=== PATIENT | male | born 1965 | race Caucasian/White ===

== ENCOUNTER → 2021-03-31 14:26 | Outpatient (CLI) | payer OTHER, SELFPAY ==
[2021-03-31 17:47] LABS: Absolute Neutrophil Count 3.5 X10^3/uL (2.0-7.7); Basophil# 0.02 X10^3/uL; Basophil% 0.4 % (0-1); Eosinophil# 0.09 X10^3/uL; Eosinophils% 1.7 % (0-5); Hematocrit 45.8 % (40-54); Hemoglobin 15.5 g/dL (13.0-16.5); Lymphocyte % 26.2 % (19-41); Mean Corp Hgb Conc 33.8 g/dL (32-36); Mean Corpuscular Volume 88.6 fL (80-94); Mean Platelet Vol. 10.9 fl (6.2-12.0); Monocyte# 0.37 X10^3/uL; Monocyte% 6.9 % (0-10); NRBC Flagged by Analyzer 0 % (0-5); Neutrophil # 3.46 X10^3/uL (2.7-7.7); Neutrophil % 64.6 % (47-70); Platelet Count 248 K/mm3 (150-450); RBC Distribution Width CV 12.6 % (11.6-14.6); RBC Distribution Width SD 41.1 fl (35.1-43.9); Red Blood Count 5.17 M/mm3 (4.6-6.2); White Blood Count 5.4 K/mm3 (4.4-11.0)
[2021-03-31 17:58] LABS: ALB/GLOB Ratio 1.1 RATIO (0.9-2.4); AST(SGOT) 25 U/L (15-37); Alanine Aminotransfer ALT/SGPT 45 U/L (16-61); Albumin, Serum 4.1 g/dL (3.2-5.0); Alkaline Phosphatase 67 U/L (45-117); Anion Gap 7 (5-15); BUN 15 mg/dL (7-18); BUN/Creat Ratio 15.3 RATIO (10-20); Calcium,Total 9.2 mg/dL (8.5-10.1); Chloride 101 mmol/L (98-107); Cholesterol 175 mg/dL (200); Creatinine, Serum 0.98 mg/dL (0.70-1.30); EST Glomerular Filtration Rate 84 mL/min (>60); Est Glom Filt Rate - Afr Amer 102 mL/min (>60); Globulin 3.6 g/dL (2.2-4.2); Glucose 88 mg/dL (74-106); High Density Lipoprotein 41 mg/dL; Potassium 3.5 mmol/L (3.5-5.1); Protein, Total 7.7 g/dL (6.4-8.2); Sodium Level 137 mmol/L (136-145); Triglycerides 195 mg/dL; Very Low Density Lipoprotein 39 mg/dL (5-40)
[2021-04-03 09:20] LABS: Testosterone Free 18.9 pg/mL (7.2-24.0)
== END ==
PROVIDERS: PCP Registered Nurse; Referring Provider Registered Nurse; Visit Provider Registered Nurse
DX: I10 Essential (primary) hypertension (principal); R53.83 Other fatigue
CPT/HCPCS: 36415; 80053; 80061; 84402; 85025

== ENCOUNTER → 2022-01-05 | Outpatient (CLI) | payer OTHER, SELFPAY ==
[2022-01-05 18:16] LABS: Hematocrit 41.7 % (40-54); Hemoglobin 14.1 g/dL (13.0-16.5); Mean Corp Hgb Conc 33.8 g/dL (32-36); Mean Corpuscular Hgb 29.8 pg (27.0-32.0); Mean Corpuscular Volume 88.2 fL (80-94); Mean Platelet Vol. 11.3 fl (6.2-12.0); Platelet Count 202 K/mm3 (150-450); RBC Distribution Width CV 13.4 % (11.6-14.6); RBC Distribution Width SD 43.8 fl (35.1-43.9); Red Blood Count 4.73 M/mm3 (4.6-6.2); White Blood Count 4.7 K/mm3 (4.4-11.0)
[2022-01-05 18:31] LABS: Anion Gap 6 (5-15); BUN 16 mg/dL (7-18); BUN/Creat Ratio 17.1 RATIO (10-20); Calcium,Total 9.3 mg/dL (8.5-10.1); Chloride 105 mmol/L (98-107); Creatinine, Serum 0.93 mg/dL (0.70-1.30); EST Glomerular Filtration Rate 89 mL/min (>60); Est Glom Filt Rate - Afr Amer 108 mL/min (>60); Glucose 90 mg/dL (74-106); Sodium Level 137 mmol/L (136-145)
== END | disposition home or self-care (01) ==
LOC: MFPLAB 14:40
PROVIDERS: PCP Registered Nurse; Visit Provider Nurse Practitioner Family
DX: I10 Essential (primary) hypertension (principal)
CPT/HCPCS: 36415; 80048; 85027

== ENCOUNTER → 2022-08-04 | Outpatient (CLI) | payer OTHER, SELFPAY ==
[2022-08-04 17:43] LABS: Absolute Lymphocyte Count 1.38 X10^3/uL (0.83-4.51); Absolute Neutrophil Count 4.2 X10^3/uL (2.0-7.7); Basophil# 0.02 X10^3/uL; Basophil% 0.3 % (0-1); Eosinophil# 0.06 X10^3/uL; Hematocrit 44.6 % (40-54); Hemoglobin 15.4 g/dL (13.0-16.5); Lymphocyte # 1.38 X10^3/ul (0.83-4.51); Lymphocyte % 22.5 % (19-41); Mean Corp Hgb Conc 34.5 g/dL (32-36); Mean Corpuscular Hgb 29.8 pg (27.0-32.0); Mean Corpuscular Volume 86.4 fL (80-94); Mean Platelet Vol. 10.6 fl (6.2-12.0); Monocyte# 0.48 X10^3/uL; Monocyte% 7.8 % (0-10); NRBC Flagged by Analyzer 0 % (0-5); Neutrophil # 4.16 X10^3/uL (2.7-7.7); Neutrophil % 68.1 % (47-70); Platelet Count 250 K/mm3 (150-450); RBC Distribution Width CV 12.7 % (11.6-14.6); RBC Distribution Width SD 39.8 fl (35.1-43.9); Red Blood Count 5.16 M/mm3 (4.6-6.2); White Blood Count 6.1 K/mm3 (4.4-11.0)
[2022-08-04 18:26] LABS: ALB/GLOB Ratio 1.2 RATIO (0.9-2.4); AST(SGOT) 27 U/L (15-37); Alanine Aminotransfer ALT/SGPT 37 U/L (16-61); Albumin, Serum 4.3 g/dL (3.2-5.0); Alkaline Phosphatase 72 U/L (45-117); Anion Gap 7 (5-15); BUN 15 mg/dL (7-18); BUN/Creat Ratio 15.1 RATIO (10-20); Calcium,Total 10.3 mg/dL (8.5-10.1); Chloride 102 mmol/L (98-107); Cholesterol 163 mg/dL (200); Creatinine, Serum 0.99 mg/dL (0.70-1.30); EST Glomerular Filtration Rate 83 mL/min (>60); Est Glom Filt Rate - Afr Amer 100 mL/min (>60); Globulin 3.6 g/dL (2.2-4.2); Glucose 97 mg/dL (74-106); Hemoglobin A1c 5.5 % (3.8-5.6); High Density Lipoprotein 49 mg/dL; PSA,Total - Annual Screen 1.92 ng/mL (0.00-4.00); Potassium 3.5 mmol/L (3.5-5.1); Protein, Total 7.9 g/dL (6.4-8.2); Sodium Level 139 mmol/L (136-145); Thyroid Stim Hormone (TSH) 0.65 uIU/mL (0.358-3.74); Triglycerides 104 mg/dL; Very Low Density Lipoprotein 21 mg/dL (5-40)
== END | disposition home or self-care (01) ==
LOC: MFPLAB 16:26
PROVIDERS: PCP Family Medicine; Referring Provider Family Medicine; Visit Provider Family Medicine
DX: Z00.00 Encounter for general adult medical examination without abnormal findings (principal); Z13.0 Encounter for screening for diseases of the blood and blood-forming organs and certain disorders involving the immune mechanism; Z13.1 Encounter for screening for diabetes mellitus; Z13.220 Encounter for screening for lipoid disorders; Z12.5 Encounter for screening for malignant neoplasm of prostate; Z13.29 Encounter for screening for other suspected endocrine disorder
CPT/HCPCS: 36415; 80053; 80061; 83036; 84153; 84443; 85025; G0103

== ENCOUNTER → 2023-04-26 | Outpatient (CLI) | payer OTHER, SELFPAY ==
[2023-04-28 10:09] LABS: Lyme Scn Total Ab w/Rflx Negative (Negative)
== END | disposition home or self-care (01) ==
LOC: MFPLAB 11:52
PROVIDERS: PCP Family Medicine; Visit Provider Family Medicine
DX: S40.261A Insect bite (nonvenomous) of right shoulder, initial encounter (principal); S80.861A Insect bite (nonvenomous), right lower leg, initial encounter; S30.861A Insect bite (nonvenomous) of abdominal wall, initial encounter; W57.XXXA Bitten or stung by nonvenomous insect and other nonvenomous arthropods, initial encounter
CPT/HCPCS: 36415; 86618

== ENCOUNTER → 2023-06-09 | Outpatient (CLI) | payer OTHER, SELFPAY ==
[2023-06-09 13:33] LABS: Absolute Lymphocyte Count 1.11 X10^3/uL (0.83-4.51); Absolute Neutrophil Count 4.3 X10^3/uL (2.0-7.7); Basophil# 0.02 X10^3/uL; Basophil% 0.4 % (0-1); Eosinophil# 0.01 X10^3/uL; Eosinophils% 0.2 % (0-5); Hematocrit 45.9 % (40-54); Hemoglobin 14.9 g/dL (13.0-16.5); Lymphocyte # 1.11 X10^3/ul (0.83-4.51); Lymphocyte % 19.5 % (19-41); Mean Corp Hgb Conc 32.5 g/dL (32-36); Mean Corpuscular Hgb 29.4 pg (27.0-32.0); Mean Corpuscular Volume 90.5 fL (80-94); Mean Platelet Vol. 9.6 fl (6.2-12.0); Monocyte# 0.26 X10^3/uL; Monocyte% 4.6 % (0-10); NRBC Flagged by Analyzer 0 % (0-5); Neutrophil # 4.26 X10^3/uL (2.7-7.7); Neutrophil % 74.6 % (47-70); Platelet Count 288 K/mm3 (150-450); RBC Distribution Width CV 13.2 % (11.6-14.6); RBC Distribution Width SD 43.8 fl (35.1-43.9); Red Blood Count 5.07 M/mm3 (4.6-6.2); White Blood Count 5.7 K/mm3 (4.4-11.0)
--- OUTSIDE RECORDS SUMMARY | 2023-06-09 13:39 | XMS RPT_ITS | CCD ---
Author Name Unknown Address [address] [facility] [address] [place] [address] Organization [facility] Care Team Providers Care Cask Maker Name Role Phone Ni Law Unavailable Unavailable Ni Law Unavailable Unavailable NI LAW Unavailable Unavailabl e Unavailable Primary Care Provider UnavailROGERIO Omalley Primary Care Unavailable AMAYA CUTLER Attending Unavailabl e Problems Problem Classification Problem Date Documented Da te Episodic/Chronic Medical examination/evaluation (2 sources) Encounter for general adult medical examination without abnormal findings; Translations: [Encounter for general adult medical examination without abnormal findings] Onset: 02-22-2017 Episodic Results Test Name Value Interpretation Reference Range Facil ity Encounters Encounter Date Encounter Type Care Provider Facility Start: 09-20-2022 End: 09-20-2022 ambulatory ROGERIO YIN Facility:[facility] Start: 05-26-2020 End: 05-26-2020 Patient encounter procedure Danielle Bansalick [facility] Phone[facility] Start: 05-22-2020 End: 05-22-2020 Orders Only Danielle Bansalick Work Phone: [facility] [facility] - [facility] Start: 02-22-2017 End: 02-22-2017 Ambulatory NI LAW [facility] Start: 02-22-2017 Ambulatory Ni Law Facility :[facility] Plan of Treatment Date Care Activity Detail Author Start: 06-23-2020 COVID-19 Vaccine (Moderna) (#2) COVID-19 Vaccine (Moderna) (#2) [facility] Start: 06-23-2020 End: 06-23-2020 Immunization 06/23/2020 Immunization Primary Care Danielle Venegas MD [address] [facility] [address] [place] [address] [phone] [facility] [facility] - [facility] Start: 01-15-2020 Influenza vaccination given Sequential Influenza Vaccine (#1) [facility] Start: 10-08-2015 Administration of herpes zoster vaccine Zoster Vaccines (1 of 2) [facility] Start: 10-08-2015 Screening for malignant neoplasm of colon [facility] Start: 10-08-1983 Hepatitis C antibody, confirmatory test Hepatitis C Screening [facility] Start: 1980 HIV screening HIV Screening [facility] Start: 1977 Adolescent depression screening assessment Depression Screening (PHQ9) [facility] Start: 1968 History and physical examination, annual for health maintenance Wellness Visit [facility] Start: 1965 Prostate specific antigen measurement PSA Level [facility] Start: 1965 Tetanus vaccination Tetanus: Every 10yrs [facility] Immunizations Immunization Date Immunization Notes Care Provider Fa keilaty 05-26-2020 Moderna SARS-CoV-2 Vaccination Alessandro Barney [facility] Payers Date Payer Category Payer Unknown [facility] CHOICE x [id number] 2020-Present [id number] 2017 Unknown [id number] Unknown [id number] Social History Date Type Detail Facility Tobacco smoking status NHIS Unknown if ev er smoked [facility] Sex Assigned At Not on file [facility] Exposure to SARS-CoV-2 (event) Not sure [facility] Progress note 09-20-2022 Note Date & Type Note Facility 09-20-2022 Note HNO ID: [id number] Author: Amaya Cutler OD Service: ? 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 Nuclear sclerotic cataract of both eyes - ICD9: 366.16, ICD10: H25.13 (primary diagnosis) Mild cataract in both eyes. Well tolerated at this time. Discussed possible future affect on daily activities to watch for. Monitor as instructed. 2. Hyperopia, bilateral - ICD9: 367.0, ICD10: H52.03 3. Regular astigmatism of left eye - ICD9: 367.21, ICD10: H52.222 4. Presbyopia - ICD9: 367.4, ICD10: H52.4 Continue to wear his glasses with the update. Recommended yearly exams Amaya Cutler, OD I have confirmed and edited as necessary the relevant ophthalmic history, ROS, and the neuro exam findings as obtained by others. 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 This clinical summary was aggregated from multiple sources. Caution should be exercised in using it in the provision of clinical care. This summary normalizes information from multiple sources, and as a consequence, information in this document may materially change the coding, format and clinical context of patient data. In addition, data may be omitted in some cases. CLINICAL DECISIONS SHOULD BE BASED ON THE PRIMARY CLINICAL RECORDS. [employer] provides no warranty or guarantee of the accuracy or completeness of information in this document.
[2023-06-09 14:07] LABS: Albumin, Serum 3.8 g/dL (3.2-5.0); Anion Gap 3 (5-15); BUN 19 mg/dL (7-18); BUN/Creat Ratio 14.2 RATIO (10-20); Calcium,Total 10.9 mg/dL (8.5-10.1); Chloride 103 mmol/L (98-107); Creatinine, Serum 1.34 mg/dL (0.70-1.30); EST Glomerular Filtration Rate 58 mL/min (>60); Est Glom Filt Rate - Afr Amer 71 mL/min (>60); Glucose 148 mg/dL (74-106); Potassium 4.1 mmol/L (3.5-5.1); Sodium Level 137 mmol/L (136-145)
== END | disposition home or self-care (01) ==
PROVIDERS: PCP Family Medicine; Referring Provider Specialist; Visit Provider Specialist
DX: Z01.818 Encounter for other preprocedural examination (principal); M16.11 Unilateral primary osteoarthritis, right hip; Z01.810 Encounter for preprocedural cardiovascular examination
CPT/HCPCS: 36415; 80048; 82040; 85025; 93005

== ENCOUNTER → 2023-06-17 | Outpatient (CLI) | payer OTHER, SELFPAY ==
--- OUTSIDE RECORDS SUMMARY | 2023-06-17 18:05 | XMS RPT_ITS | CCD ---
Author Name Unknown Address [address] [facility] [address] [place] [address] Organization [facility] Care Team Providers Care Pet Care Associate Name Role Phone Ni Law Unavailable Unavailable [...] Start: 09-20-2022 End: 09-20-2022 ambulatory ROGERIO YIN Facility:[facility] Start: 05-26-2020 End: 05-26-2020 Patient encounter procedure Danielle Bansalick [facility] Phone: [facility] Start: 05-22-2020 End: 05-22-2020 Orders Only Danielle Bansalick Work Phone: [facility] [facility] - [facility] Start: 02-22-2017 End: 02-22-[address] [facility] Start: 02-22-2017 Ambulatory Ni Law Facility :[place] Plan of Treatment Date Care Activity Detail Author Start: 06-23-2020 COVID-19 Vaccine (Moderna) (#2) COVID-19 Vaccine (Moderna) (#2) [facility] Start: 06-23-2020 End: 06-23-2020 Immunization 06/23/2020 Immunization Primary Care Danielle Venegas MD [address] [facility] [address] [place] [address] [phone] [facility] - [facility] Start: 01-15-2020 Influenza vaccination given Sequential Influenza Vaccine (#1) [facility] Start: 10-08-2015 Administration of herpes zoster vaccine Zoster Vaccines (1 of 2) [facility] Start: 10-08-2015 Screening for malignant neoplasm of colon [facility] Start: 10-08-1983 Hepatitis C antibody, confirmatory test Hepatitis C Screening [facility] Start: 1980 HIV screening HIV Screening [facility] Start: 1977 Adolescent depression screening assessment Depression Screening (PHQ9) [facility] Start: 1968 History and physical examination, annual for health maintenance Wellness Visit [facility] Start: 1965 Prostate specific antigen measurement PSA Level [facility] Start: 1965 Tetanus vaccination Tetanus: Every 10yrs [facility] Immunizations Immunization Date Immunization Notes Care Provider Fa keilaty 05-26-2020 Moderna SARS-CoV-2 Vaccination Alessandro Barney [facility] Payers Date Payer Category Payer Unknown [facility] CHOICE x [id number] 2020-Present [id number] 2017 Unknown [id number] Unknown [id number] Social History Date Type Detail Facility Tobacco smoking status NHIS Unknown if ev er smoked [facility] Sex Assigned At Not on file [facility] Exposure to SARS-CoV-2 (event) Not sure [facility] Progress note 09-20-2022 Note Date & Type Note Facility 09-20-2022 Note HNO ID: [id number] Author: Amaya Cutler OD Service: ? Author Type: ZIPPER SETTER LOCKSTITCH Type: Progress Notes Filed: 09/20/2022 10:50 AM [...] neuro exam findings as obtained by others. 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 [employer] provides no warranty or guarantee of the accuracy or completeness of information in this document.
[2023-06-17 18:25] LABS: Hemoglobin A1c 5.7 % (3.8-5.6)
[2023-06-17 18:42] LABS: ALB/GLOB Ratio 1.1 RATIO (0.9-2.4); AST(SGOT) 19 U/L (15-37); Alanine Aminotransfer ALT/SGPT 30 U/L (16-61); Alkaline Phosphatase 60 U/L (45-117); Anion Gap 3 (5-15); BUN 16 mg/dL (7-18); BUN/Creat Ratio 15.1 RATIO (10-20); Calcium,Total 10.2 mg/dL (8.5-10.1); Chloride 98 mmol/L (98-107); Creatinine, Serum 1.06 mg/dL (0.70-1.30); EST Glomerular Filtration Rate 76 mL/min (>60); Est Glom Filt Rate - Afr Amer 92 mL/min (>60); Globulin 3.7 g/dL (2.2-4.2); Glucose 91 mg/dL (74-106); Potassium 3.7 mmol/L (3.5-5.1); Protein, Total 7.7 g/dL (6.4-8.2); Sodium Level 132 mmol/L (136-145)
[2023-06-17 18:50] LABS: Microalbumin,Random Urine < 5.0 mg/L (NO RANGE EST.)
== END | disposition home or self-care (01) ==
LOC: MFPLAB 16:10
PROVIDERS: PCP Family Medicine; Visit Provider Family Medicine
DX: Z01.812 Encounter for preprocedural laboratory examination (principal); I10 Essential (primary) hypertension
CPT/HCPCS: 36415; 80053; 82043; 83036

== ENCOUNTER 2023-07-27 06:45 | Day surgery (SDC) | payer OTHER, SELFPAY ==
--- NOTE | 2023-06-28 21:29 | HP.PCM_ITS ---
History and Physical History and Physical? Patient Name: Yifan Almanzar : 1965 From:? EDINSON COBB PA-C? DATE OF PRE-OPERATIVE EXAM: 06/27/2023 DATE OF SURGERY:? 07/27/2023 SCHEDULED PROCEDURE:? Right total hip arthroplasty HISTORY OF PRESENT ILLNESS: Preoperative history and physical exam was performed on June 27, 2023.? This is a 57-year-old male who has been having ongoing pain in his right hip for over 6 years.? Pain has been progressively been getting worse.? He does complain of groin pain.? Pain as being constant, dull, aching, sharp.? 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 He has start up pain.? Pain does awaken him at night.? 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 Patient denies past history of surgery on the right hip.? He has tried conservative measures including rest, ice, heat, elevation with no relief.? He attempted a previous intra-articular corticosteroid injection for the right hip which only gave 5 weeks of relief.? He has been through previous physical therapy and home exercises without relief.? Patient has been on oral medications including Tylenol and nonsteroidal anti-inflammatories without relief.? Patient does have past history of surgery on the left hip including resurfacing in 2007 and revision left total hip arthroplasty [place] [address] Zackary Desai.? Patient has medical history pertinent for hypertension.? He denies any past history of DVT or pulmonary embolism.? On patient's initial lab work he had elevated kidney function however on repeat lab work patient states he was taking in adequate fluids and his kidney function returned to normal levels.? He denies any recent chest pain, shortness of breath, fevers chills or recent infections.? We have obtain surgical clearance from the primary care provider Dr. Garrido.? After failing conservative measures and discussing all treatment options with Dr. Zackary Desai, the patient does wish to proceed with a right total hip arthroplasty. REVIEW OF SYSTEMS: Review Of Systems: Constitutional: Denies anorexia, anxiety, change in appetite, fever, difficulty sleeping, weight change. Cardiovasular: Denies chest pain, heart murmur, irregular heartbeat and peripheral vascular disease. Respiratory: Denies asthma, cough, pneumonia, sleep apnea, shortness of breath, tuberculosis and wheezing. Gastrointestinal: Denies constipation, diarrhea, heartburn, nausea, rectal itching, bloody stools and vomiting. Genitourinary: Denies incontinence. Musculoskeletal: Reports pain, but denies leg swelling, trouble walking and weakness. Skin: Denies Raynaud's, history of shingles and tattoo. Neurological: Reports numbness/tingling but denies ambulatory dysfunction, dizziness and tremor. Psychiatric: Denies anxiety, depression, insomnia, mental illness and stress. Hematologic/Lymphatic: Denies anemia, bleeding/bruising tendency and past transfusion. Reviewed, no changes. PAST MEDICAL HISTORY: Advance Care Plan: Resuscitation, POA Effective Date: 01/19/2023 Past Medical History: Medical Problems: High Blood Pressure Accidents: Sports Related Injury - (1989) TORN ACL RT & LFT KNEE Surgical Hx: ACL Repair - (1989) [facility] LFT & RT KNEE LT Hip Resurfacing - (2007) Tonsillectomy, Hernia Repair LT THR - (06/29/2016) SAW@[facility] Right Hip Injection Under Fluoro - (01/28/2023) DR. DESAI AT [facility] Anesthesia Complications: None Assistive Devices: Glasses - READING Reviewed and updated. 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 Personal Habits:? Cigarette Use: Never.Smokeless Tobacco: Never Used Smokeless Tobacco.E-Cigarette Use: Never used.Alcohol: Occasionally.Drug Use: Denies Use.Enjoy Exercising: Exercises 1-3 x/month. Reviewed and updated. VITALS: Ht: 72.5 Wt: 210lb Wt k.256 BMI: 28.1 BP: 128/78 Pulse: 77 T: 97.3 T: 36.3C Pain Level: 4 O2SatR: 95 ALLERGIES: No Known Drug Allergy? MEDICATIONS: Oxycodone HCL 5 mg 1-2 tab by mouth every 4 hours, Meloxicam 7.5 mg 1 by mouth twice a day, Zofran 4 mg one by mouth every 8 as needed nausea, Famotidine 20 mg 1 by mouth every day, Valsartan-Hydrochlorothiazide 320-25 mg 1 by mouth every day, QC Tumeric Complex 500 mg 2 po daily PRE-OP EXAM:? General appearance:NORMAL? ? ? Other: Eyes: Conjunctivae and lids: NORMAL? Pupils: ERR Ears, Nose, Mouth, and Throat: NORMAL? Other: Inspection of lips, teeth and gums: NORMAL? ?Other: Neck: Examination of neck: no masses noted. Respiratory: Assessment of respiratory effort: NORMAL? ?Other: ?Auscultation of lungs: clear to auscultation no wheezes, rhonchi or rales. Cardiovascular:? Auscultation of heart: regular rate and rhythm, no murmurs, gallops or rubs. PHYSICAL EXAMINATION: Patient walks with a antalgic gait.? The right hip has crepitus with range of motion.? He has increased groin pain with range of motion.? Flexion 80 with obligatory external rotation, internal rotation 20, external rotation 20.? Sensation intact to light touch.? 4/5 hip strength on the right. IMAGING STUDIES: Previous x-rays of the right hip reveal joint space narrowing, subchondral sclerosis, osteophyte formation consistent with severe stage IV bone on bone osteoarthritis.? There has been significant progression of osteoarthritis and joint space narrowing from previous x-rays. IMPRESSION: 1.? Severe right hip osteoarthritis 2.? Presence of left total hip arthroplasty 3.? Hypertension PLAN: Dr. Zackary Desai did discuss and review with the patient all treatment options including surgical versus nonsurgical options.? Patient does wish to proceed with the above-stated procedure.? Potential risks, benefits, and complications of the procedure were discussed in detail including but not limited to , infection, nerve and blood vessel damage, persistent pain, numbness, tingling, paresthesias, blood clot, pulmonary embolism, and requirement for possible further surgery.? The patient expressed full understanding and has no further questions for the doctor.? Patient does agree to proceed with the above-stated procedure and has signed the surgery consent form. POST-OP MEDICATION PLAN: Pain Medications:? ?Patient was given the following medications at the preoperative visit: Famotidine, meloxicam, oxycodone, Zofran.? He was instructed to take Aspirin 81 mg, extra strength Tylenol, and senna.? We did discuss ambulatory assistance in patient would like to use crutches.? I did explain to him he can also use a walker.?? DVT Prophylaxis:? Aspirin 81 mg twice daily for 4 weeks postoperatively.? Denies past history of DVT or pulmonary embolism? This dictation was created using voice recognition software. Phonetic and/or grammatical errors may exist. ___? I have re-examined the patient.? There are no clinical changes since date of exam. ___? See progress notes for changes. ___? Dictated on admission Date: ? ? ?Time: Signature:
[2023-07-14 12:59] LABS: Magnesium 2.3 mg/dL (1.6-2.6)
[2023-07-27] VITALS (10 sets, daily range): BP systolic 83–127; BP diastolic 59–82; PULSE 71–84; RESP 16–18; TEMP 35.9–36.4; O2SAT 95–100; BMI 30.3
--- OUTSIDE RECORDS SUMMARY | 2023-07-27 06:46 | XMS RPT_ITS | CCD ---
Author Name Unknown Address [address] [place] [address] Organization [facility] Care Team Providers Care Boat Tester Name Role Phone Ni Law Unavailable Unavailable [...] Start: 09-20-2022 End: 09-20-2022 ambulatory ROGERIO YIN Facility:[facility] Start: 05-26-2020 End: 05-26-2020 Patient encounter procedure Danielle Bansalick [facility] Start: 05-22-2020 End: 05-22-2020 Orders Only Danielle Bansalick Work Phone: [facility] - [facility] Start: 02-22-2017 End: 02-22-2017 Ambulatory NI LAW [facility] Start: 02-22-2017 Ambulatory Ni Law Facility :[place] Plan of Treatment Date Care Activity Detail Author Start: 06-23-2020 COVID-19 Vaccine (Moderna) (#2) COVID-19 Vaccine (Moderna) (#2) [facility] Start: 06-23-2020 End: 06-23-2020 Immunization 06/23/2020 Immunization Primary Care Danielle Venegas MD [address] [facility] [address] [place] [address] [phone] [facility] Start: 01-15-2020 Influenza vaccination given Sequential Influenza Vaccine (#1) [facility] Start: 10-08-2015 Administration of herpes zoster vaccine Zoster Vaccines (1 of 2) [facility] Start: 10-08-2015 Screening for malignant neoplasm of colon [facility] Start: 10-08-1983 Hepatitis C antibody, confirmatory test Hepatitis C Screening [facility] Start: 1980 HIV screening HIV Screening [facility] Start: 1977 Adolescent depression screening assessment Depression Screening (PHQ9) [facility] Start: 1968 History and physical examination, annual for health maintenance Wellness Visit [facility] Start: 1965 Prostate specific antigen measurement PSA Level [facility] Start: 1965 Tetanus vaccination Tetanus: Every 10yrs [facility] Immunizations Immunization Date Immunization Notes Care Provider Fa keilaty 05-26-2020 Moderna SARS-CoV-2 Vaccination Alessandro Barney [facility] Payers Date Payer Category Payer Unknown [facility] CHOICE x [id number] 2020-Present [id number] 2017 Unknown [id number] Unknown [id number] Social History Date Type Detail Facility Tobacco smoking status NHIS Unknown if ev er smoked [facility] Sex Assigned At Not on file [facility] Exposure to SARS-CoV-2 (event) Not sure [facility] Progress note 09-20-2022 Note Date & Type Note Facility 09-20-2022 Note HNO ID: [id number] Author: Amaya Cutler OD Service: ? Author Type: BANQUET KITCHEN SUPERVISOR Type: Progress Notes Filed: 09/20/2022 10:50 AM [...] neuro exam findings as obtained by others. 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 [employer] provides no warranty or guarantee of the accuracy or completeness of information in this document.
[2023-07-27] MEDS: Lactated Ringers 1,000 ML 999 ML IV (07:19)
[2023-07-27] MEDS: Magnesium 1 GM over 15 mins IV (07:19)
[2023-07-27] MEDS: Acetaminophen 500 MG Tablet 1000 MG PO (07:20)
[2023-07-27] MEDS: Gabapentin 600 MG Tablet PO (07:21)
[2023-07-27] MEDS: Celecoxib 200 MG Capsule 400 MG PO (07:21)
[2023-07-27] MEDS: Lactated Ringers 1,000 ML 15 ML IV (07:22)
--- NOTE | 2023-07-27 07:39 | SUR.PREOP ---
THIS NURSE NOTED ELECTRIC SHAVER RUSSELL WHEN I WAS SHAVING HIS UPPER THIGH AREA FOR THE PROCEDURE. THEY DIDN'T LOOK OPEN BUT REALLY RED. PATIENT STATED HE DID THIS WHEN HE WAS SHAVING HIS SELF PRIOR TO THE PROCEDURE.
[2023-07-27 08:05] LABS: Bedside Glucose 129 mg/dL (74-106)
[2023-07-27] MEDS: Cefazolin 2 GM in 0.9% Normal Saline (100mL Bag) 100 ML IV (08:49)
[2023-07-27] MEDS: TXA 1000mg in NS100 100ml (IVPB at Incision) 660 MG IV (09:05)
[2023-07-27] MEDS: dexAMETHasone 10 MG/ML Vial IV (09:09)
--- NOTE | 2023-07-27 09:15 | HIP_PTH ---
PATHOLOGY RESULTS PATIENT: ELY THOMPSON LOC: [facility] U#:[id number] AGE/SX: 57/M ROOM: RE07/27/[address]: Dr. Zackary Desai MD : 1965 BED: DIS: 07/27/2023 SPEC #: [id number] RECD: 07/27/23 13:17 STATUS: JUDITH SELENE #: [id number] KATEY: 07/27/23 09:[address]: Zackary Desai DEPT: SURGICAL PATHOLOGY RECD BY: Rosa Adorno ENTERED: 07/27/23 13:17 SP TYPE: TOTAL HIP OTHR DR: Delaney Garrido DO Tissues: Hip, NOS Procedures: Decalcification bone/plaque Surgery Specimen Level IV HEADER OPERATION: ERAS, Anterior right total hip arthroplasty PRE-OP DIAGNOSIS: Severe right hip osteoarthritis TISSUE SUBMITTED: Right femoral head MICROSCOPIC DIAGNOSIS Right hip bone and soft tissue, total hip replacement/resection: Femoral head with severe degenerative osteoarthritic changes and focal avascular necrosis. SJ:mr 08/01/2023 COMMENT Case has been reviewed in consultation with Dr. Escalante who concurs with the above diagnosis. IDC:AM MICROSCOPIC DESCRIPTION Slides are reviewed. GROSS DESCRIPTION Received is one container labeled with the patient's name and designated bone and soft tissue Right hip. The specimen consists of a merlos femoral head with portion of femoral neck. The femoral head measures 4.5 x 5.5 x 4.0 cm and the femoral neck measures 1.5 cm in length. The articular surface displays prominent osteophyte formation, eburnation and bone erosion. Also present in the specimen container are multiple irregular fragments of bone reamings measuring in aggregate 6.0 x 5.0 x 1.5 cm. The top of the femoral head shows focal yellowish-white area suspicious for avascular necrosis measuring 3 x 2 cm and depth of up to 1cm. [employer] Developer sections are submitted in three cassettes as follows: 1 - bone reamings, 2 & 3- femoral head after decalcification. SJ/mr 07/27/23 TC:5 CPT: 72811, 16431
--- NOTE | 2023-07-27 10:03 | RAD_ITS ---
STUDY: X-RAY - PELVIS AND RIGHT HIP REASON FOR EXAM: Male, 57 years old. Fluoroscopic images. TECHNIQUE: 4 intraoperative digital documentation views of the pelvis and hip. COMPARISON: Comparison reports dated 07/27/2023 and 06/29/2016. FINDINGS: 4 intraoperative digital documentation view shows bilateral total hip arthroplasties. 10.7 seconds of fluoroscopy time. Radiation dose of 1.79 mGy. RAD/Hip 1 view with Pelvis IMPRESSION: Intraoperative digital documentation views. Electronically Signed: Sammy Smith MD at 14:58 EDT ,
[2023-07-27] MEDS: TXA 1000mg in NS100 100ml (IVPB at Closure) 660 MG IV (10:22)
--- NOTE | 2023-07-27 10:23 | PCM.OPRPT ---
Report of Operation Date of Procedure: 07/27/23 Pre-Operative Diagnosis: Right hip primary osteoarthritis Post-Operative Diagnosis: Right hip primary osteoarthritis Surgery/Procedure Performed:: Right minimally invasive direct anterior total hip replacement Description of Surgical Findings:: Stable hip with equal leg length Surgeon: Zackary Desai reinsurance analyst: Wilfredo Casanova Type of Anesthesia: Spinal Anesthesiologist: Sage Mathur Special Medications: 2 g Ancef, 1 g TXA at incision, 1 g TXA closure, 10 mg Decadron, joint cocktail (5 mg Duramorph, 30 mL of 0.5% Ropivicaine, 1000 units of epinephrine, 30 mg of Toradol) Specimen's removed: Bony cuts Estimated Blood Loss (mL): 400 Fluids Replaced: 1300 ml Description of Procedure: Components used: 1. Accolade 2 Stonewall femoral stem size 7 127? 2. Ash trident 2 acetabular shell size 56 mm 3. Ash X3 polyethylene F 4. Stonewall Biolox delta 36mm, -5mm femoral head Brief history operative indications: 57 yo M who failed conservative measures for their hip osteoarthritis. X-rays were consistent with osteoarthritis including joint space narrowing, osteophyte formation and subchondral cysts. Total hip replacement was discussed with the patient with risks and benefits including but not limited to blood loss, DVTs, PEs, neurovascular damage, dislocation, general risks of anesthesia including loss of life. Patient demonstrated an understanding medical clearance is obtained the patient was consented for surgery. Procedure: On the date of procedure the patient's right hip was marked in the preoperative area. Patient was then taken back to the operating room where anesthesia assumed control of the C-spine and airway and administered anesthetic. Patient was transferred to the operating table and placed in the supine position. The hips were placed at the break of the bed and a sacral bump was placed. The right lower extremity was then prepped out in a sterile fashion using chlorhexidine while the surgeon scrubbed. The PA was vital in the positioning of the patient. Upon reentering the room the right lower extremity was draped in the standard orthopedic fashion and the incision was marked. A timeout was called and everyone agreed upon the side, the site, the procedure be performed, antibody given, and patient's identity. At this time incision was made through skin, subcutaneous tissue, and fat down to fascia. The fascia was then incised and the TFL was retracted laterally. A retractor was placed on the lateral border of the femoral neck. Attention was directed to the inferior portion of the approach and all crossing vessels were identified and appropriately coagulated. A retractor was then placed on the medial portion of the femoral neck. The anterior capsule was then cleared of all soft tissue and then H shaped capsulotomy was made. The retractors were then placed inside the capsule. The femoral neck was identified and a cleanup cut was made. At this time a power corkscrew was used to remove the femoral head. Attention was then turned toward the acetabulum where the soft tissues were appropriately retracted and the acetabulum was sequentially reamed to 56 mm. A 56 mm cup was then selected and impacted into place. Acetabular liner was impacted into place and locking mechanism was verified. The position of the acetabular cup was then verified under live fluoroscopy. Attention was then turned to the femur. Soft tissue releases on the medial and lateral femoral neck were appropriately done, the leg was externally rotated and lateralized. A Bhatt retractor was placed medially and proximally to the greater trochanter this allowed appropriate visualization and exposure of the femoral canal. Rongeour was then used to remove excess lateral bone. A canal finder and entry broach were used to open the proximal canal. Once we verified we were down the femoral canal we subsequently broached up to a size 7 femur. The appropriate neck was placed in the previously selected head was trialed with a -5 mm neck. Traction was pulled and the hip was reduced with internal rotation. Once it was appropriately reduced and stability was checked. There was minimal shuck, equal leg lengths and appropriate stability with hyperextension and external rotation as well as with 90? flexion and internal rotation. Fluoroscopy was then also used to verify the position of the components and leg lengths using the contralateral side for comparison. The trial components were then dislocated the proximal femur was again exposed and the components were removed from the wound. The final components were verified and opened. The wound was copiously irrigated out with normal saline. The acetabulum was checked for any residual debris. The final components were placed and impacted. Traction and internal rotation were again used to reduce the hip. After adequate reduction the hip remained stable with appropriate leg lengths. The final components were once again checked with live fluoroscopy and were found to be satisfactory. The wound was then copiously irrigated with normal saline once more, and hemostasis was obtained. Closure was then done using #1 Vicryl runner to close the fascia. A 2-0 vicryl interuppted sutures were used to close the subcutaneous skin. A 3-0 Monocryl and Steri-Strips were used for final skin closure. A Silverlon dressing was placed. Patient was awakened by anesthesia and transferred to [facility]. Patient was then transferred to the PACU for recovery. During the course of the procedure the physician community service officer coordinator (PE) played a vital role. Their intimate knowledge of my steps in the procedure aided in safe and expedient completion of the procedure. The PE played a vital rolls in positioning particularly in obtaining the appropriate positioning of the sacral bump. The PE was also vital in the retraction of soft tissues during the exposure and especially the femoral work as this is a vital part of the procedure to prevent complications and fractures. The PE was also vital and protecting soft tissues during times of bony cuts and reaming. He also played a vital role in closure with my direct supervision. The PE was also important during reduction and dislocation of the joint and trials intraoperatively. Postoperative plan: Patient will get 24 hours postop antibiotics. Patient will get in-house physical therapy and will be weight-bear as tolerated. Patient will follow up in office in 2 weeks for a wound check and x-rays. Aspirin 81 mg twice daily. Complications No intraoperative complications Admit VTE Documentation VTE Present on Admission: No VTE Mechan Device Prophylaxis: SCD's and Thigh High VANESSA Hose VTE Pharm Prophylaxis ordered?: Yes
[2023-07-27] MEDS: JPS (Morphine 10mg/ml) OPERA.SITE (10:25)
[2023-07-27] MEDS: Lactated Ringers 1,000 ML 125 ML IV (11:02)
--- NOTE | 2023-07-27 11:15 | RAD_ITS ---
STUDY: X-RAY - PELVIS AND RIGHT HIP REASON FOR EXAM: Male, 57 years old. FABIOLA -- in PACU TECHNIQUE: 2 views of the pelvis and hip. COMPARISON: None. FINDINGS: Patient is status post right total hip replacement. There is good alignment. Postoperative soft tissue changes. RAD/Hip Min 2 Views (Portable) IMPRESSION: Status post right total hip replacement. There is good alignment. Postoperative soft tissue changes. Electronically Signed: Levi Silva MD at 11:31 EDT ,
[2023-07-27] MEDS: Cefazolin 1 GM/50 ML BAG IV (12:28)
== END 2023-07-27 14:24 | disposition home or self-care (01) ==
LOC: SDC 06:45 → AC 06:45
PROVIDERS: Anesthesiology; PCP Family Medicine; Referring Provider Specialist; Visit Provider Specialist
PROC: (CPT 27284; principal; 2023-07-27 08:50)
DX: M16.11 Unilateral primary osteoarthritis, right hip (principal); I10 Essential (primary) hypertension; Z79.899 Other long term (current) drug therapy
CPT/HCPCS: 27130; 36415; 73501; 73502; 76000; 82962; 83735; 87081; 88305; 88311; 97162; C1776; J7120; J2405; J3475

== ENCOUNTER 2023-08-29 01:46 | Emergency (ER) | payer OTHER, SELFPAY ==
[2023-08-29] VITALS (19 sets, daily range): BP systolic 100–138; BP diastolic 59–117; PULSE 62–80; RESP 12–22; TEMP 36.3–36.6; O2SAT 89–100; BMI 30.6
--- NOTE | 2023-08-29 02:26 | RAD_ITS ---
EXAM: XR RIGHT HIP WITH PELVIS WHEN PERFORMED, 2 OR 3 VIEWS CLINICAL INDICATION: pain / dislocation TECHNIQUE: Two or three views of the right hip with pelvis when performed. COMPARISON: 07/27/2023. FINDINGS: BONES/JOINTS: Dislocation of the right hip arthroplasty with superolateral displacement of the femoral head component. Bilateral total hip arthroplasties. No displaced fracture. No destructive or sclerotic lesions. Note that overlapping bowel shadows may however obscure fine detail. Sacroiliac joint is unremarkable. No widening of the pubic symphysis. SOFT TISSUES: Unremarkable. No soft tissue swelling or gas. RAD/HIP, UNI W/ Pelvis 2-3 Views IMPRESSION: Dislocation of the right hip arthroplasty with superolateral displacement of the femoral head component. Electronically Signed: Zan Morgan MD at 3:18 EDT ,
[2023-08-29] MEDS: HYDROmorphone 1 MG/ML Syringe IV (02:29)
[2023-08-29] MEDS: Ondansetron 4 MG/2 ML Vial IV (02:30)
[2023-08-29] MEDS: 0.9% Normal Saline (1000mL) 1,000 ML 999 ML IV (05:30)
--- NOTE | 2023-08-29 05:51 | RAD_ITS ---
EXAM: XR PELVIS, 1 OR 2 VIEWS CLINICAL INDICATION: pain TECHNIQUE: Frontal view of the pelvis performed at 05:52. COMPARISON: Right hip from same date. FINDINGS: BONES/JOINTS: Persistent dislocation of the right hip arthroplasty. No periprosthetic fracture. Stable left hip arthroplasty. No destructive or sclerotic lesions. Note that overlapping bowel shadows may however obscure fine detail. Sacroiliac joints are unremarkable. No widening of the pubic symphysis. SOFT TISSUES: Unremarkable. No soft tissue swelling or gas. RAD/Pelvis 1 or 2 Views IMPRESSION: Persistent dislocation of the right hip arthroplasty. Electronically Signed: Zan Morgan MD at 6:21 EDT ,
--- NOTE | 2023-08-29 06:04 | RAD_ITS ---
EXAM: XR RIGHT HIP WITH PELVIS WHEN PERFORMED, 1 VIEW CLINICAL INDICATION: pain TECHNIQUE: Frontal view of the right hip with pelvis when performed at 06:00. COMPARISON: Pelvis from same date FINDINGS: BONES/JOINTS: Reduction of the previous right hip arthroplasty dislocation, now with normal alignment. No displaced fracture. No destructive or sclerotic lesions. Note that overlapping bowel shadows may however obscure fine detail. Sacroiliac joint is unremarkable. No widening of the pubic symphysis. SOFT TISSUES: Unremarkable. No soft tissue swelling or gas. RAD/Hip 1 view with Pelvis IMPRESSION: Reduction of the previous right hip arthroplasty dislocation, now with normal alignment. Electronically Signed: Zan Morgan MD at 6:22 EDT ,
[2023-08-29] MEDS: Midazolam 5 MG/ML Syringe IV (06:12)
[2023-08-29] MEDS: Propofol 200 MG/20 ML Vial IV BOLUS (06:12)
--- NOTE | 2023-08-29 06:13 | EX.ED.DYSGE1 ---
HPI History of Present Illness Chief Complaint: Lower Extremity Injury Informant: patient Narrative Narrative: Patient is a 57-year-old male with history of arthritis who underwent a total right hip replacement roughly 1 month ago. Patient states he has been doing well and following the directions of his orthopedic surgeon for rehab. He reports he was laying on the couch to see me when he stretched and after doing this he felt a pop and then noticed pain in his right hip and the inability to move the hip or ambulate. With concern he dislocated his hip he was brought in for evaluation [facility] Medical History (Updated 08/29/23 @ 06:[address] Real Benson, DO) Arthritis Back pain History of pain when walking Leg cramps Non-smoker Wears glasses Home Medications valsartan 320 mg-hydrochlorothiazide 25 mg tablet 1 tab PO DAILY 07/06/23 [History Last Taken 07/26/23] meloxicam 7.5 mg tablet 7.5 mg PO BID 08/29/23 [History Last Taken Unknown] trazodone 50 mg tablet 75 mg PO QHS 08/29/23 [History Last Taken Unknown] Allergy/AdvReac Type Severity Reaction Status Date / Time No Known Allergies Allergy Verified 07/27/23 07:14 Surgical History History of revision of total replacement of hip joint History of tonsillectomy and adenoidectomy Hx of hernia repair Hx of left knee surgery Hx of right knee surgery Hx of total hip arthroplasty Social History Smoking Status: Never smoker ROS [facility] ED Constitutional Constitutional ED: Denies chills or fever(s) Eyes Eyes: Denies change in vision ENT ENT ED: Denies sore throat Cardiovascular Cardiovascular: Denies chest pain Respiratory/Chest Respiratory/Chest: Denies cough or dyspnea Gastrointestinal Gastrointestinal: Denies abdominal pain, diarrhea, nausea or vomiting Genitourinary Genitourinary ED: Denies dysuria Musculoskeletal Musculoskeletal: Reports other Details: Positive right hip pain Integumentary Denies Abrasions or rash Neurologic Neurologic: Denies headache(s) or paresthesias Hematologic/Lymphatic Hematologic/Lymphatic: Denies easy bleeding or easy bruising EXAM Physical Exam Const Vital Signs: 08/29/23 03:46 08/29/23 05:38 08/29/23 05:39 Temperature 98 F Pulse Rate 68 79 Pulse Rate [5] 78 Pulse Rate [6] 72 Pulse Rate [7] 71 Pulse Rate [8] 72 Respiratory Rate 19 H 18 Respiratory Rate [5] 12 Respiratory Rate [6] 14 Respiratory Rate [7] 22 H Respiratory Rate [8] 19 H Blood Pressure 110/59 L 122/75 H Blood Pressure [6] 133/89 H Blood Pressure [7] 127/74 H Blood Pressure [8] 113/79 Blood Pressure Mean 76 Pulse Ox 97 100 Oxygen Delivery Method Room Air Nasal Cannula Oxygen Delivery Method [1 (Initial Baseline)] Nasal Cannula Oxygen Delivery Method [2] Nasal Cannula Oxygen Delivery Method [3] Nasal Cannula Oxygen Delivery Method [4] Nasal Cannula Oxygen Delivery Method [5] Nasal Cannula Oxygen Delivery Method [6] Nasal Cannula Oxygen Delivery Method [7] Nasal Cannula Oxygen Delivery Method [8] Nasal Cannula Oxygen Flow Rate (L/min) 2 Oxygen Flow Rate (L/min) [2] 2 Oxygen Flow Rate (L/min) [3] 2 Oxygen Flow Rate (L/min) [4] 3 Oxygen Flow Rate (L/min) [5] 2 Oxygen Flow Rate (L/min) [6] 2 Oxygen Flow Rate (L/min) [7] 2 Oxygen Flow Rate (L/min) [8] 3 08/29/23 06:00 08/29/23 06:05 08/29/23 06:10 Temperature Pulse Rate Pulse Rate [5] Pulse Rate [6] Pulse Rate [7] Pulse Rate [8] Respiratory Rate Respiratory Rate [5] Respiratory Rate [6] Respiratory Rate [7] Respiratory Rate [8] Blood Pressure Blood Pressure [6] Blood Pressure [7] Blood Pressure [8] Blood Pressure Mean Pulse Ox Oxygen Delivery Method Room Air Room Air Room Air Oxygen Delivery Method [1 (Initial Baseline)] Oxygen Delivery Method [2] Oxygen Delivery Method [3] Oxygen Delivery Method [4] Oxygen Delivery Method [5] Oxygen Delivery Method [6] Oxygen Delivery Method [7] Oxygen Delivery Method [8] Oxygen Flow Rate (L/min) Oxygen Flow Rate (L/min) [2] Oxygen Flow Rate (L/min) [3] Oxygen Flow Rate (L/min) [4] Oxygen Flow Rate (L/min) [5] Oxygen Flow Rate (L/min) [6] Oxygen Flow Rate (L/min) [7] Oxygen Flow Rate (L/min) [8] 04/15/24 07:35 08/29/23 03:45 08/29/23 04:15 Temperature 97.4 F L Pulse Rate 80 Pulse Rate [5] Pulse Rate [6] Pulse Rate [7] Pulse Rate [8] Respiratory Rate 18 Respiratory Rate [5] Respiratory Rate [6] Respiratory Rate [7] Respiratory Rate [8] Blood Pressure 100/72 110/59 L 119/64 Blood Pressure [6] Blood Pressure [7] Blood Pressure [8] Blood Pressure Mean 81 75 79 Pulse Ox 96 89 Oxygen Delivery Method Oxygen Delivery Method [1 (Initial Baseline)] Oxygen Delivery Method [2] Oxygen Delivery Method [3] Oxygen Delivery Method [4] Oxygen Delivery Method [5] Oxygen Delivery Method [6] Oxygen Delivery Method [7] Oxygen Delivery Method [8] Oxygen Flow Rate (L/min) Oxygen Flow Rate (L/min) [2] Oxygen Flow Rate (L/min) [3] Oxygen Flow Rate (L/min) [4] Oxygen Flow Rate (L/min) [5] Oxygen Flow Rate (L/min) [6] Oxygen Flow Rate (L/min) [7] Oxygen Flow Rate (L/min) [8] 08/29/23 04:45 08/29/23 05:15 08/29/23 05:37 Temperature Pulse Rate 80 Pulse Rate [5] Pulse Rate [6] Pulse Rate [7] Pulse Rate [8] Respiratory Rate 16 Respiratory Rate [5] Respiratory Rate [6] Respiratory Rate [7] Respiratory Rate [8] Blood Pressure 103/59 L 119/63 122/75 H Blood Pressure [6] Blood Pressure [7] Blood Pressure [8] Blood Pressure Mean 74 78 90 Pulse Ox 95 100 Oxygen Delivery Method Oxygen Delivery Method [1 (Initial Baseline)] Oxygen Delivery Method [2] Oxygen Delivery Method [3] Oxygen Delivery Method [4] Oxygen Delivery Method [5] Oxygen Delivery Method [6] Oxygen Delivery Method [7] Oxygen Delivery Method [8] Oxygen Flow Rate (L/min) Oxygen Flow Rate (L/min) [2] Oxygen Flow Rate (L/min) [3] Oxygen Flow Rate (L/min) [4] Oxygen Flow Rate (L/min) [5] Oxygen Flow Rate (L/min) [6] Oxygen Flow Rate (L/min) [7] Oxygen Flow Rate (L/min) [8] 08/29/23 05:45 08/29/23 06:09 08/29/23 06:15 Temperature Pulse Rate 75 75 Pulse Rate [5] Pulse Rate [6] Pulse Rate [7] Pulse Rate [8] Respiratory Rate 17 12 Respiratory Rate [5] Respiratory Rate [6] Respiratory Rate [7] Respiratory Rate [8] Blood Pressure 138/117 H 103/68 115/100 H Blood Pressure [6] Blood Pressure [7] Blood Pressure [8] Blood Pressure Mean 125 79 105 Pulse Ox 96 97 Oxygen Delivery Method Oxygen Delivery Method [1 (Initial Baseline)] Oxygen Delivery Method [2] Oxygen Delivery Method [3] Oxygen Delivery Method [4] Oxygen Delivery Method [5] Oxygen Delivery Method [6] Oxygen Delivery Method [7] Oxygen Delivery Method [8] Oxygen Flow Rate (L/min) Oxygen Flow Rate (L/min) [2] Oxygen Flow Rate (L/min) [3] Oxygen Flow Rate (L/min) [4] Oxygen Flow Rate (L/min) [5] Oxygen Flow Rate (L/min) [6] Oxygen Flow Rate (L/min) [7] Oxygen Flow Rate (L/min) [8] 08/29/23 07:15 08/29/23 07:36 Temperature 97.5 F L Pulse Rate 72 62 Pulse Rate [5] Pulse Rate [6] Pulse Rate [7] Pulse Rate [8] Respiratory Rate 17 15 Respiratory Rate [5] Respiratory Rate [6] Respiratory Rate [7] Respiratory Rate [8] Blood Pressure 109/68 135/77 H Blood Pressure [6] Blood Pressure [7] Blood Pressure [8] Blood Pressure Mean 81 96 Pulse Ox 96 98 Oxygen Delivery Method Oxygen Delivery Method [1 (Initial Baseline)] Oxygen Delivery Method [2] Oxygen Delivery Method [3] Oxygen Delivery Method [4] Oxygen Delivery Method [5] Oxygen Delivery Method [6] Oxygen Delivery Method [7] Oxygen Delivery Method [8] Oxygen Flow Rate (L/min) Oxygen Flow Rate (L/min) [2] Oxygen Flow Rate (L/min) [3] Oxygen Flow Rate (L/min) [4] Oxygen Flow Rate (L/min) [5] Oxygen Flow Rate (L/min) [6] Oxygen Flow Rate (L/min) [7] Oxygen Flow Rate (L/min) [8] Positive well nourished and well developed General Appearance ED: well developed; Negative for pallor HEENT HEENT Narrative: Normocephalic atraumatic Eyes PERRL and EOMs intact bilaterally General Eye ED: Negative for scleral icterus Neck supple Resp normal respiratory effort and clear to auscultation bilaterally Cardio regular rate and regular rhythm Rate: other Other Details: Heart is regular rate and rhythm without murmurs rubs or gallops Radial and carotid pulses are equal and symmetric GI normal to inspection, nondistended, normoactive bowel sounds, non-tender, non-distended and no masses Auscultation: normoactive bowel sounds Palpation: soft Extremity Extremity Narrative: The right hip is shortened and externally rotated compared to the left. The patient cannot actively move the right hip. The right lower extremity is neurovascularly intact. No overlying soft tissue changes to suggest infection Remainder of the exam is normal Neuro oriented x3, CN's II-XII intact bilaterally and no sensory deficits noted Sensorium / Orientation: alert Psych mental status grossly normal Skin no rashes or lesions noted and skin turgor normal General Skin Exam: Negative for jaundice or pallor MDM MDM MDM Narrative Medical decision making narrative: Patient arrived to the ER with stable vitals and reported that he cannot move his right hip after stretching and had concern for dislocation. There was no reported trauma but differential diagnosis is for periprosthetic fracture versus hip dislocation. Do not feel there is need for laboratory testing based on his history and exam but x-rays need to be obtained to rule out the periprosthetic fracture versus hip dislocation. X-rays were obtained and did confirm the dislocation. Secondary to this the patient underwent conscious sedation as listed in the chart and the hip was reduced. As the hip is now in proper alignment and he does not have signs of neurovascular compromise periprosthetic fracture or infection there is no need for further workup in ER and he is otherwise safe for discharge Patient underwent conscious sedation with propofol and Versed. A total of 140 mg of propofol and 2.5 mg of Versed was used. Total sedation time was approximately 20 minutes. Traction with external rotation and abduction was applied to the patient's right hip causing spontaneous relocation. Confirmation was by x-ray. Patient tolerated procedure well without complication History & Record Review Discussion w/independent historian: Patient Radiography Diagnostic Testing: Clinical Impression(s) from Imaging Studies Hip/Pelvis X-Ray 08/29/23 02:26 IMPRESSION: Dislocation of the right hip arthroplasty with superolateral displacement of the femoral head component. Electronically Signed: Zan Morgan MD at 3:18 EDT , Pelvis X-Ray 08/29/23 05:51 IMPRESSION: Persistent dislocation of the right hip arthroplasty. Electronically Signed: Zan Morgan MD at 6:21 EDT , X-ray of the right hip and 1 view pelvis as interpreted by the emergency medicine physician shows a previous right hip arthroplasty with superior lateral displacement and no acute periprosthetic fracture Status post reduction films as interpreted by the emergency medicine physician show realignment of the right hip without periprosthetic fracture Procedures Procedural Sedation 1 (Initial Baseline): Consent Signed: Yes Any Problems With Anesthesia: No You/Your family experience fever (hyperthermia) w/anesthesia: No Sedation medication: Versed Route: IV Maliampati Score: Class II ASA Classification: I Comment:: Please note total sedation time of approximately 20 minutes Discharge Plan Triage Chief Complaint: Lower Extremity Injury ED Provider: Real Benson Dx/Rx/DC Orders Clinical Impression: Anterior dislocation of right hip Instructions: ED Hip Replace Dislocation Reduc Prescriptions: No Action valsartan-hydrochlorothiazide 320-25 mg tablet 1 tab PO DAILY Patient Comments: TAKE 1 TABLET BY MOUTH EVERY DAY trazodone 50 mg tablet 75 mg PO QHS meloxicam 7.5 mg tablet 7.5 mg PO BID Primary Care Provider: Delaney Garrido Referrals: Delaney Garrido DO [Primary Care Provider] - Zackary Desai MD [Med Staff - Active Staff] - Activity Restrictions/Additional Instructions: Please contact your orthopedic surgeon and inform him of your recent hip dislocation. Follow his instructions for treatment options and return to the ER should you have any further concerns Disposition Disposition: Home, Self Care Discharge Date/Time: 08/29/23 07:37
== END 2023-08-29 07:37 | disposition home or self-care (01) ==
PROVIDERS: Emergency Provider Emergency Medicine; PCP Family Medicine; Visit Provider Emergency Medicine
DX: T84.020A Dislocation of internal right hip prosthesis, initial encounter (principal); X58.XXXA Exposure to other specified factors, initial encounter; Z79.1 Long term (current) use of non-steroidal anti-inflammatories (NSAID); Z79.899 Other long term (current) drug therapy; Z96.641 Presence of right artificial hip joint
CPT/HCPCS: 27265; 72170; 73501; 73502; 96361; 96374; 96375; 99152; 99284; J7030; A4216; J2405

== ENCOUNTER → 2024-09-07 | Outpatient (CLI) | payer OTHER, SELFPAY ==
[2024-09-07 17:47] LABS: Absolute Lymphocyte Count 1.38 X10^3/uL (0.83-4.51); Absolute Neutrophil Count 4.2 X10^3/uL (2.0-7.7); Basophil# 0.04 X10^3/uL; Basophil% 0.6 % (0-1); Eosinophil# 0.09 X10^3/uL; Eosinophils% 1.4 % (0-5); Hemoglobin 15.6 g/dL (13.0-16.5); Lymphocyte # 1.38 X10^3/ul (0.83-4.51); Lymphocyte % 21.9 % (19-41); Mean Corp Hgb Conc 34.7 g/dL (32-36); Mean Corpuscular Hgb 29.8 pg (27.0-32.0); Mean Corpuscular Volume 85.9 fL (80-94); Mean Platelet Vol. 10.7 fl (6.2-12.0); Monocyte# 0.59 X10^3/uL; Monocyte% 9.4 % (0-10); NRBC Flagged by Analyzer 0 % (0-5); Neutrophil # 4.17 X10^3/uL (2.7-7.7); Neutrophil % 66.4 % (47-70); Platelet Count 238 K/mm3 (150-450); RBC Distribution Width CV 13.8 % (11.6-14.6); RBC Distribution Width SD 42.9 fl (35.1-43.9); Red Blood Count 5.24 M/mm3 (4.6-6.2); White Blood Count 6.3 K/mm3 (4.4-11.0)
[2024-09-07 18:22] LABS: ALB/GLOB Ratio 1.4 RATIO (0.9-2.4); AST(SGOT) 33 U/L (<=37); Alanine Aminotransfer ALT/SGPT 36 U/L (<=46); Albumin, Serum 4.5 g/dL (3.5-5.0); Alkaline Phosphatase 76 U/L (40-129); Anion Gap 13 (5-15); BUN 16 mg/dL (4-19); BUN/Creat Ratio 14.2 RATIO (10-20); Bilirubin, Direct 0.24 mg/dL (0.00-0.30); Calcium,Total 10.3 mg/dL (7.6-11.0); Carbon Dioxide 24.7 mmol/L (21.0-32.0); Chloride 100 mmol/L (98-108); Cholesterol 196 mg/dL (<=200); Creatinine, Serum 1.09 mg/dL (0.70-1.20); EST Glomerular Filtration Rate 79 (>60); Globulin 3.1 g/dL (2.2-4.2); Glucose 96 mg/dL (70-99); High Density Lipoprotein 44 mg/dL; Low Density Lipoprotein Calc. 125 mg/dL; PSA,Total - Annual Screen 1.86 ng/mL (0.02-4.00); Protein, Total 7.7 g/dL (5.9-8.4); Sodium Level 137 mmol/L (133-145); Triglycerides 135 mg/dL; Very Low Density Lipoprotein 27 mg/dL (5-40); cholesterol:hdl ratio screen 4.47
== END | disposition home or self-care (01) ==
LOC: MFPLAB 15:21
PROVIDERS: PCP Family Medicine; Referring Provider Family Medicine; Visit Provider Family Medicine
DX: I10 Essential (primary) hypertension (principal); Z12.5 Encounter for screening for malignant neoplasm of prostate; B35.1 Tinea unguium
CPT/HCPCS: 36415; 80053; 80061; 82248; 84153; 85025; G0103

== ENCOUNTER → 2025-01-11 | Outpatient (CLI) | payer OTHER, SELFPAY ==
[2025-01-11 10:51] LABS: AST(SGOT) 24 U/L (<=37); Alanine Aminotransfer ALT/SGPT 26 U/L (<=46); Albumin, Serum 4.3 g/dL (3.5-5.0); Alkaline Phosphatase 59 U/L (40-129); Anion Gap 9 (5-15); BUN 22 mg/dL (4-19); BUN/Creat Ratio 19.6 RATIO (10-20); Calcium,Total 10.1 mg/dL (7.6-11.0); Carbon Dioxide 26.6 mmol/L (21.0-32.0); Chloride 105 mmol/L (98-108); Globulin 2.7 g/dL (2.2-4.2); Glucose 100 mg/dL (70-99); Potassium 4.0 mmol/L (3.3-5.1)
== END | disposition home or self-care (01) ==
LOC: MFPLAB 09:03
PROVIDERS: PCP Family Medicine; Referring Provider Family Medicine; Visit Provider Family Medicine
DX: B35.1 Tinea unguium (principal)
CPT/HCPCS: 36415; 80053

== ENCOUNTER → 2025-04-02 | Outpatient (CLI) | payer OTHER, SELFPAY ==
--- NOTE | 2025-04-02 10:47 | RAD_ITS ---
PROCEDURE: LUMBAR SPINE 2 OR 3 VIEWS 04/02/2025 REASON FOR EXAM: PAIN TECHNIQUE: Procedure Code: RADSPLL Modality: DX Procedure: LUMBAR SPINE 2 OR 3 VIEWS COMPARISON: None FINDINGS: There is dextrocurvature of the lumbar region with less than 10 degrees of variance, which can indicate spasm. Vertebral body height is grossly maintained. There is grade 1 spondylolisthesis at L3-4, 0.4 cm. There is degenerative disc disease which is most severe at L5-S1. There is moderate facet sclerosis. Mineralization is normal. Vascular calcifications are visible. Hardware is partly visible in the right and left hip. RAD/Lumbar Spine 2 or 3 Views IMPRESSION: There is dextrocurvature of the lumbar region with less than 10 degrees of vari ance, which can indicate spasm. There is grade 1 spondylolisthesis at L3-4, 0.4 cm. There is degenerative disc disease which is most severe at L5-S1. Reading Location: [facility]
--- NOTE | 2025-04-02 10:47 | RAD_ITS ---
PROCEDURE: SACRUM-COCCYX MIN 2 VIEWS 04/02/2025 REASON FOR EXAM: PAIN TECHNIQUE: Procedure Code: RADSAC Modality: DX Procedure: SACRUM-COCCYX MIN 2 VIEWS COMPARISON: April 02, 2025 FINDINGS: Hardware is partly visible in the right and left hip. The SI joints appear symmetric and aligned. The sacral foramina appear intact. Degenerative disc disease is noted at L5-S1. Facet sclerosis is noted in the lumbar region. Mineralization is normal. There is no visible atherosclerosis. RAD/Sacrum-Coccyx min 2 Views IMPRESSION: No sacral or coccygeal fracture is identified. Reading Location: [facility]
== END | disposition home or self-care (01) ==
LOC: MTRAD 10:43
PROVIDERS: PCP Family Medicine; Referring Provider Nurse Practitioner Family; Visit Provider Nurse Practitioner Family
DX: M54.50 Low back pain, unspecified (principal)
CPT/HCPCS: 72100; 72220